=== PATIENT | male | born 1945 | race Caucasian/White ===

== ENCOUNTER 2017-09-03 08:32 | Day surgery (SDC) | payer MEDICARE ==
[~2017-09-03 08:32] MED LIST: ACETAMINOPHEN 1,000 MG/100 ML BTL IV ONE
[2017-09-03] MEDS ORDERED: PROPOFOL 10 MG/ML VIAL IV ONE (08:33)
[2017-09-03] MEDS ORDERED: KETOROLAC 30 MG/ML VIAL IVP ONE (08:33)
[2017-09-03] MEDS ORDERED: LIDOCAINE 2% MDV (20MG/ML) 20ML VIAL IV ONE (08:33)
[2017-09-03] MEDS ORDERED: EPHEDRINE SULFATE 50 MG/ML ML IV ONE (08:33)
[2017-09-03] MEDS ORDERED: LABETALOL HCL 5MG/ML, 20ML VIAL IV ONE (08:33)
[2017-09-03] MEDS ORDERED: SEVOFLURANE 250 ML INH ONE (08:33)
[2017-09-03] MEDS ORDERED: BUPIVACAINE 0.25% W/EPI MPF 30ML VIAL IVP ONE (08:33)
[2017-09-03] MEDS ORDERED: HYDROCODONE/APAP 7.5/325MG TABLET PO ONE (08:33)
--- NOTE | 2017-09-03 15:10 | Operative Note ---
DATE OF SURGERY: 09/03/2017 Surgeon: Jack Loya DO PREOPERATIVE DIAGNOSES: 1. Torn medial meniscus of the left knee. 2. Chondromalacia of the left knee. POSTOPERATIVE DIAGNOSES: 1. Torn medial meniscus of the left knee. 2. Osteoarthritis of left knee. OPERATION: 1. Arthroscopic partial medial meniscectomy, left knee. 2. Arthroscopic chondroplasty of medial femoral condyle and trochlea, left knee. DESCRIPTION OF PROCEDURE: This 72-year-old male was taken to the operating room and placed in the supine position on the operating room table. A general anesthetic was administered and the left lower extremity was elevated. It was prepped with Hibiclens and draped in the usual sterile fashion after limb exsanguinated and the tourniquet inflated to 300 mmHg. The arthroscopic knee nation applied and the knee was prepped and draped in the usual sterile fashion. An inferolateral portal was established for the 4 mm arthroscope, and initial evaluation of the joint demonstrated grade 2 chondromalacia of the patella but it was not grossly unstable and it was not further disturbed. The trochlea, however, demonstrated grade 4 changes with severe degenerative disease and loosened fragmented edges of articular cartilage at the periphery of the lesion. The lesion was approximately 2-3 cm in greatest dimension. Chondroplasty was performed on the trochlea to stabilize the articular cartilage there, what little was remaining. The medial compartment was entered and a complex tear of the posterior horn of the medial meniscus was present with both flap type tears as well as degenerative changes. We used the basket forceps and rotating shaver to resect unstable fragments of the meniscus. It was then re-probed and confirmed to be stable, the apex of the tear being at approximately the 12:30 position. There was grade 2 chondromalacia of the medial femoral condyle with loose fragments of articular cartilage there, and a chondroplasty was performed to stabilize the articular cartilage. The intracondylar notch was examined and found to be normal. The lateral compartment was entered. Grade 2 chondromalacia of the lateral tibial plateau was present but the lateral meniscus appeared normal. The joint was then copiously irrigated and suctioned. The instruments were removed. The portals were infiltrated with 0.25% Marcaine with epinephrine. The puncture sites were closed with 4-0 nylon suture. Sterile dressings were applied and the patient was taken to the recovery room in satisfactory condition. 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 POONAM
== END 2017-09-03 11:56 | disposition home or self-care (01) ==
LOC: SUR 08:32
PROVIDERS: ATTEND Orthopaedic Surgery
DX: M23.252 Derangement of posterior horn of lateral meniscus due to old tear or injury, left knee (principal); M94.262 Chondromalacia, left knee
CPT/HCPCS: 29881; 01400; J1885